=== PATIENT | male | born 1990 | race Caucasian/White ===

== ENCOUNTER 2023-08-20 21:22 | Emergency (ER) | payer BC, SELFPAY ==
[2023-08-20 21:24] VITALS: BP 124/72; PULSE 83; RESP 16; TEMP 36.6; O2SAT 98; BMI 25.1
--- NOTE | 2023-08-20 21:47 | PC.NURSE ---
Dr. Dawson in room
--- NOTE | 2023-08-20 21:53 | [facility].EDGENADL ---
Discharge Plan Disposition Patient Disposition: Home, Self-Care Prescriptions Prescriptions: New sulfamethoxazole-trimethoprim [Bactrim DS] 800-160 mg tablet 1 tab PO BID 7 Days Qty: 14 0RF Referrals Follow up/Referrals: Provider,Referral, [Primary Care Provider] - See instructions Activity Restrictions/Add. Instructions Additional Instructions/Restrictions: At this time it was felt you are safe to be discharged home. If new or worsening symptoms please do not hesitate to return the emergency department. Please take antibiotics as prescribed. Clinical Impressions Clinical Impression: Paronychia Discharge ED Provider: Marin Dawson [facility] HPI General Chief complaint: Wound/Laceration Stated complaint: possible infection in right hand index finger Time Seen by Provider: 08/20/23 21:30 Mode of Arrival: Ambulatory Source of Information: Patient Limitations: No Limitations Description of Symptoms (Recalled from ER Triage Doc. by RN): pt reports swelling to right index finger and possible infection for 2 weeks History of Present Illness HPI narrative: Patient is a 33-year-old male with past medical history of hepatitis C on medical therapy presents emergency department for evaluation of right finger swelling. Onset was subacute, slowly over the last 2 weeks, on his distal index finger on his right hand. Due to progressive symptoms he presents here for continued evaluation. No other acute complaints at this time. Related Data Previous Rx's Medication Instructions Recorded sulfamethoxazole 800 1 tab PO BID 7 days #14 tabs 08/20/23 mg-trimethoprim 160 mg tablet (Bactrim DS) Allergies Allergy/AdvReac Type Severity Reaction Status Date / Time aspirin Allergy Verified 08/20/23 21:36 [facility] Disclaimer: The information contained in this section may have been updated after the patient was seen, as this information can be updated by other users. Social History Smoking Status: Current every day smoker alcohol intake: never current occupational status: other Travel in the last 8 weeks: None ROS Obtained: Yes Systems reviewed as appropriate & no additional complaints except as documented Physical Exam General General appearance: alert and in no apparent distress Head Head exam: atraumatic and normocephalic Eye Eye exam: Present PERRL ENT ENT exam: Present mucous membranes moist Neck Neck exam: Present normal inspection Chest Chest inspection: Present normal inspection and symmetric chest wall rise Respiratory Respiratory exam: Absent respiratory distress Cardiovascular Cardiovascular exam: Present regular rate and normal rhythm Extremities Exam Extremities exam: Present other (Erythema and fluctuance along the proximal nail fold of the right index finger. Flexion extension is preserved at the PIP and DIP joint. No tenderness along the tendon sheath. Capillary refill preserved distally.) Neurological Exam Neurological exam: Present alert Psychiatric Psychiatric exam: Present normal affect Skin Skin exam: Present warm and dry Medical Decision Making Dav Inquiry Pt receiving controlled substance: No Vital Signs: 08/20/23 21:24 Temperature 97.9 F Temperature Source Oral Pulse Rate [Left] 83 Respiratory Rate 16 Blood Pressure [Left Arm] 124/72 Blood Pressure Mean [Left Arm] 89 Blood Pressure Source [Left Arm] Automatic Cuff Blood Pressure Position [Left Arm] Sitting 02 Sat by Pulse Oximetry 98 Oxygen Delivery Method Room Air Medical Decision Narrative: In summary patient is a 33-year-old male with past medical history described above who presents emergency department for evaluation of finger infection. Patient is hemodynamically stable nontoxic-appearing arrival, afebrile. Given history and physical exam is consistent with paronychia. No concern for flexor tenosynovitis. Patient underwent I&D at bedside with success facilitated by digital bloc
[2023-08-20 22:18] VITALS: BP 111/68; PULSE 76; RESP 16; TEMP 36.6; O2SAT 100
== END 2023-08-20 22:19 | disposition home or self-care (01) ==
PROVIDERS: Emergency Provider Emergency Medicine
DX: L03.011 Cellulitis of right finger (principal); F17.210 Nicotine dependence, cigarettes, uncomplicated
CPT/HCPCS: 10060; 99283